=== PATIENT | female | born 1990 | race Caucasian/White ===

== ENCOUNTER 2017-01-01 10:38 | Emergency (ER) | payer OTHER ==
[2017-01-01 10:21] LABS: URINE SOURCE CLEAN CATCH
[2017-01-01 10:25] LABS: URINE APPEARANCE CLEAR; URINE BILIRUBIN NEG (NEG); URINE BLOOD 3+ (NEG); URINE COLOR YELLOW; URINE GLUCOSE NEG (NEG); URINE KETONE TRACE (NEG); URINE LEUKOCYTE ESTERASE TRACE (NEG); URINE NITRATE NEG (NEG); URINE PH 8.5 (5-8); URINE PROTEIN TRACE (NEG); URINE SPECIFIC GRAVITY 1.019 (1.003-1.035); URINE UROBILINOGEN 0.2 MG/DL (NEG)
[2017-01-01 10:27] LABS: CULTURE INDICATED? YES; URINE BACTERIA AUWI 1+ (NEGATIVE); URINE SQUAMOUS EPITHELIAL CELL FEW /[HPF]
[~2017-01-01 10:38] MED LIST: BACTRIM DS TABL1 TA1 PO; BENTYL20 MG PO; CARAFATE1 GM PO; CLONIDINE HCL0.1 M1; DELTASONE20 MG PO; DEPAKOTE PO; DEPO-PROVER150 MG/M1; DICLOFENAC PO; DOXEPIN HCL25 MG PO; HYDROXYZINE PAM25 M1 PO; KEFLEX500 M1 PO; KEFLEX500 MG; KLONOPIN1 M1; LEXAPRO; LO LOESTRIN FE1 EACH PO; NAPROSYN500 MG PO; NO MEDICATIONS; PERCOCET 5/321 UDTAB PO; PHENERGAN; PHENERGAN PR; PHENERGAN25 M1 PO; PHENERGAN25 MG PO; PREDNISONE PO; PRILOSEC PO; PROTONIX PO; TRAMADOL HCL50 M1 PO; ULTRAM; ULTRAM PO; WELLBUTRIN PO; ZITHROMAX; ZOFRAN ODT4 MG/UDTAB PO; ZOFRAN8 MG PO; ZOLOFT; ZOLOFT100 MG PO; ZOLOFT50 MG; ZOLOFT50 MG PO
[2017-01-01 10:41] LABS: BASOPHIL% 0.6 % (0-2.5); DIFF IND NO; EOSINOPHIL# 0.6 X10e3 (0-0.7); EOSINOPHIL% 9.6 % (0.0-7.0); HEMATOCRIT 43.4 % (35.0-45.0); HEMOGLOBIN 14.7 gm/dL (12.0-16.0); LYMPHOCYTE# 1.3 X10e3 (1.0-3.5); LYMPHOCYTE% 20.3 % (17.0-45.0); MEAN CELL VOLUME 90.8 FL (83-96); MEAN CORPUSCULAR HEMOGLOBIN 30.8 PG (28-34); MEAN CORPUSCULAR HGB CONC 33.9 g/dL (30-36); MEAN PLATELET VOLUME 11.4 FL (6.5-11.5); MONOCYTE# 0.4 X10e3 (0-1.0); MONOCYTE% 6.1 % (3.0-12.0); NEUTROPHIL# 3.9 X10e3 (1.5-7.1); NEUTROPHIL% 63.4 % (40-75); PLATELET COUNT 149 X10e3 (140-420); RED BLOOD COUNT 4.78 X10e (3.90-5.30); RED CELL DISTRIBUTION WIDTH 13.5 % (11.0-15.5); WHITE BLOOD COUNT 6.2 X10e3 (4.0-10.5)
[2017-01-01 11:15] LABS: ALBUMIN SERUM 4.1 g/dL (3.5-5.0); ALKALINE PHOSPHATASE 68 U/L (32-92); ALT (SGPT) 12 U/L (10-40); AST (SGOT) 21 U/L (10-42); BILIRUBIN,TOTAL 0.5 mg/dL (0.2-2.0); BLOOD UREA NITROGEN 5 mg/dL (9-23); BUN/CREATININE RATIO 7.14; CALCIUM SERUM 9.1 mg/dL (8.4-10.2); CARBON DIOXIDE 25 mmol/L (22-31); CHLORIDE 105 mmol/L (100-111); CREATININE SERUM 0.7 mg/dL (0.6-1.4); GLOM FILT RATE Estimated ABOVE60 mL/min (>60); GLUCOSE FASTING 89 mg/dL (70-110); PROTEIN TOTAL SERUM 7.5 g/dL (6.0-8.3); SODIUM 139 mmol/L (135-145)
== END 2017-01-01 12:05 | disposition home or self-care (01) ==
LOC: CFTX 10:38
PROVIDERS: Nurse Practitioner
DX: R21 Rash and other nonspecific skin eruption (principal); R10.11 Right upper quadrant pain; R10.12 Left upper quadrant pain; J02.9 Acute pharyngitis, unspecified; R11.2 Nausea with vomiting, unspecified; F31.9 Bipolar disorder, unspecified; Z90.49 Acquired absence of other specified parts of digestive tract; F17.210 Nicotine dependence, cigarettes, uncomplicated
CPT/HCPCS: 36415; 80053; 81003; 84703; 85025; 87086; 87088; 87186; 96361; 96374; 96375; 99284; J2405; J2930